=== PATIENT | male | born 1955 | race Caucasian/White ===

== ENCOUNTER → 2016-12-26 | Outpatient (CLI) | payer BC ==
[~2016-12-26] MED LIST: CENTRUM SILVER1 TAB PO; DILAUDID 2MG(HYD2 MG PO; FISH OIL 1,0001 EACH PO; GLUCOPHAGE500 MG PO; LISINOPRIL-HCT1 EAC2 PO; MELOXICAM15 MG PO; NORCO 5-325 TA1 EACH PO; PRAVACHOL40 MG PO; PROAIR HFA8.5 GM INH; PROZAC40 MG PO
== END | disposition disaster alternative care site (69) ==
LOC: LGSMG 16:56
DX: M25.562 Pain in left knee (principal)